=== PATIENT | female | born 1980 | race Asian ===

== ENCOUNTER 2018-06-02 12:07 | Observation (INO) | payer BC ==
[~2018-06-02] VITALS: Ht 157.5 cm; Wt 77.1 kg
== END 2018-06-02 18:06 | disposition home or self-care (01) ==
LOC: SPU 12:07
PROVIDERS: ADMIT Obstetrics & Gynecology; ATTEND Obstetrics & Gynecology
DX: Z34.93 Encounter for supervision of normal pregnancy, unspecified, third trimester (principal); Z3A.34 34 weeks gestation of pregnancy
CPT/HCPCS: 59025; 76819; 81002; G0378